=== PATIENT | female | born 1960 | race Caucasian/White ===

== ENCOUNTER 2023-07-08 11:11 | Day surgery (SDC) | payer BC ==
[~2023-07-08 11:11] MED LIST: Midazolam 1 MG/ML 2 ML SDV ONE; Propofol 200 MG/20 ML SDV ONE; Sodium Chloride 0.9% 10 ML Syringe FLUSH PRN
[2023-07-08] MEDS: Lactated Ringers 1,000 ML IV SCH (11:40)
[2023-07-08] MEDS ORDERED: Glycopyrrolate 0.2 MG/ML SDV IVPUSH ONE (12:17)
[2023-07-08] MEDS ORDERED: Lidocaine 2% 5 ML SDV ONE (12:17)
[2023-07-08 13:47] VITALS: BP 136/72; PULSE 71
== END 2023-07-08 13:24 | disposition home or self-care (01) ==
LOC: LL.SDS 11:11
PROVIDERS: ATTEND Surgery
DX: K29.50 Unspecified chronic gastritis without bleeding (principal); K31.A0 Gastric intestinal metaplasia, unspecified; K44.9 Diaphragmatic hernia without obstruction or gangrene; K21.9 Gastro-esophageal reflux disease without esophagitis; F41.9 Anxiety disorder, unspecified; Z79.899 Other long term (current) drug therapy; Z88.5 Allergy status to narcotic agent
CPT/HCPCS: 00731; J2250; J2704; J3490; J7120